=== PATIENT | male | born 1995 | race Caucasian/White ===

== ENCOUNTER 2021-10-01 08:13 | Emergency (ER) | payer BC, SELFPAY ==
--- NOTE | 2021-10-01 08:16 | ED.GENADULT ---
HPI - General Adult General Chief complaint: Upper Respiratory Infection Stated complaint: Fever Time Seen by Provider: 10/01/21 08:27 Source: patient and RN notes reviewed Mode of arrival: ambulatory Limitations: no limitations History of Present Illness HPI narrative: 26-year-old male presents to the [facility] with complaints of a fever. Patient states he woke up with a fever of 101 this morning, took some Advil. Also complains of generalized muscle aches and a headache. No blurry vision or change in vision. No upper respiratory symptoms. No cough. No nausea vomiting or diarrhea. Denies chest pain. MD complaint: fever Onset (ago): hour(s) (2-3) Related Data Home Medications Medication Instructions Recorded Confirmed No Home Medications 10/01/21 10/01/21 Allergies Allergy/AdvReac Type Severity Reaction Status Date / Time No Known Allergies Allergy Verified 10/01/21 08:46 Review of Systems Review of Systems: All systems reviewed & are unremarkable except as noted in HPI and below Constitutional: Constitutional: Reports as per HPI, Denies chills and Reports fever(s) Eyes: Eyes: Reports no additional eye complaints ENT: Reports system reviewed and no additional complaints, except as documented Cardiovascular: Cardiovascular: Reports no additional cardiovascular complaints Respiratory: Respiratory: Reports no additional respiratory complaints Gastrointestinal: Gastrointestinal: Reports no additional gastrointestinal complaints Musculoskeletal: Musculoskeletal: Reports no additional musculoskeletal complaints Integumentary/Breasts: Skin/Breast: Reports system reviewed and no additional complaints, except as docu Neurologic: Reports system reviewed and no additional complaints, except as documented Psychiatric: Psychiatric: Reports no additional psychiatric complaints Allergic/Immunologic: Allergic/Immunologic: Reports no additional allergic/immunologic complaints [facility] Past Medical History Medical History (Updated 10/01/21 @ 08:36 by Ruth Lao APRN) Patient denies medical problems Surgical History Surgical History (Updated 10/01/21 @ 08:35 by Ruth Lao APRN) H/O knee surgery Social History Social History (Updated 10/01/21 @ 08:35 by Ruth Lao APRN) Gender identity (if verbalized by the patient): Male Comments At the time of my signature, I reviewed and agree with the nursing past medical, surgical, social, and family history. There is no relevant family history pertinent to the patient complaint. Exam Const: General: healthy appearing, no acute distress and alert Nutritional Appearance: well nourished Orientation/consciousness: patient oriented x3 Limitations: no limitations HENMT: Head: normal to inspection Ears: external ears normal, TM's normal bilaterally and EAC's normal General nose exam: Normal external nose present Throat: posterior oropharynx normal and uvula midline Eyes: General: appearance normal, both eyes and all related structures Pupils: Equal, round and reactive pupils present Neck: Neck: normal visual inspection, no lymphadenopathy and no meningeal signs Chest: Chest palpation & inspection: normal inspection of the chest Resp: Effort & Inspection: normal respiratory effort and no use of accessory muscles Auscultation: clear to auscultation bilaterally, no crackles, no rales, no rhonchi and no wheezes Cardio: Rate: regular rate Rhythm: regular rhythm Back/Spine/Pelvis: Cervical Spine: normal cervical lordosis Thoracic/Lumbar Spine: thoracic and lumbar spine normal to inspection Skin: General skin exam: normal color Rashes: no rashes Wounds: no wounds Neuro: General: patient oriented x3, moves all extremities, no meningeal signs and no focal motor deficits Cranial nerves: Yes Equal, round and reactive pupils present Speech: normal speech Gait exam (Neuro): Normal gait present Extrem: General: normal to inspection, full ROM a
[2021-10-01 08:27] VITALS: BP 134/79; PULSE 74; RESP 20; TEMP 37.4; O2SAT 99
[2021-10-01 21:04] LABS: SARS-CoV-2 RNA PCR Positive
== END 2021-10-01 09:05 | disposition home or self-care (01) ==
PROVIDERS: Emergency Provider Nurse Practitioner
DX: U07.1 COVID-19 (principal)
CPT/HCPCS: 87804; 99203; C9803; G0463; U0003; U0005

== ENCOUNTER 2022-03-03 14:11 | Emergency (ER) | payer BC, SELFPAY ==
--- NOTE | 2022-03-03 14:12 | ED.SKABFB ---
HPI - Skin/Abscess/Foreign Bdy General Chief complaint: Skin/Abscess/Foreign Body Stated complaint: rash Time Seen by Provider: 03/03/22 14:36 Source: patient and RN notes reviewed Mode of arrival: ambulatory Limitations: no limitations History of Present Illness HPI narrative: 27-year-old male presents concern for rash. Reports he has been doing here hunting and he has been outdoors in the sandy. Reports he began having a rash on Friday several days after his exposure to the sandy. He reports he has been using Benadryl cream and calamine lotion with some temporary relief. Reports the rash has spread and is on his torso, arms, legs, groin, face. He denies involvement with the eyes or vision changes. Denies trouble breathing, swollen lips are swollen tongue MD complaint: rash Related Data Allergies Allergy/AdvReac Type Severity Reaction Status Date / Time No Known Allergies Allergy Verified 03/03/22 14:38 Review of Systems Review of Systems: CONSTITUTIONAL: Denies malaise, chills, sweats, or fever. EYES: Denies redness, or discharge. ENT: Denies rhinorrhea, congestion, swollen lips, swollen tongue CARDIOVASCULAR: Denies chest pain, palpitations, or edema. RESPIRATORY: Denies cough or dyspnea. GASTROINTESTINAL: Denies abdominal pain, nausea, vomiting SKIN: Reports itchy rash on his arms, legs, torso, groin, face MUSCULOSKELETAL: Denies joint pain or myalgia. NEUROLOGIC: Denies headache. All systems reviewed & are unremarkable except as noted in HPI and below PMFSH Past Medical History Medical History (Updated 03/03/22 @ 14:46 by Ruth Pedraza NP) Patient denies medical problems Surgical History Surgical History (Updated 10/01/21 @ 08:35 by Ruth Lao APRN) H/O knee surgery Social History Social History (Updated 10/01/21 @ 08:35 by Ruth Lao APRN) Gender identity (if verbalized by the patient): Male Comments At time of signature, agree with nursing past medical, surgical, social and family history. There is no relevant family history pertinent to the presenting complaint Exam Narrative: GENERAL: Well-appearing, well-nourished, and in no acute distress. HEAD: Normocephalic, atraumatic. Sclerae and conjunctivae clear EYES: PERRLA, conjunctivae clear, and EOMI. ENT: Mucous membranes moist. Oropharynx without edema, erythema or lesions. NECK: Supple. No lymphadenopathy CHEST: Clear to auscultation. No respiratory distress. HEART: Regular rate and rhythm. SKIN: Warm, dry. Patches of erythema, some scaly with some papules noted to bilateral arms, legs, face, torso, not involving eyes NEURO: Alert and oriented x3. PSYCH: Normal mood and affect Course Course Emergency Course: Patient is aware of diagnosis, understands and agrees to treatment plan. Anticipatory guidance given. Patient agrees to follow-up as directed and is aware of reasons to seek care at the emergency department. Portions of this record may have been created with voice recognition software Level of Care: Express Care Visit Vital Signs Vital signs: Reviewed. MDM - Skin/Abscess/Foreign Bdy MDM Narrative Medical decision making narrative: Does not appear at this time to be erythema multiforme, bullous, SJS, TEN; no evidence at this time to suggest RMSF, endocarditis or Lyme disease; patient looks well, nontoxic and is tolerating oral intake; no neurologic signs or symptoms; no headache, photophobia or neck pain; afebrile; appropriate for initial outpatient treatment; discussed the importance of follow-up, patient agrees; question, viral exanthema, contact dermatitis, allergic dermatitis, eczema, urticaria, scabies. No soft palate or uvula edema, no tongue, lip edema or other mucosal involvement, no respiratory compromise, no stridor, no wheezing, no wheezing, no history of syncope, no hypotension, no nausea, vomiting, or diarrhea. Instructed patient to go to nearest ER immediately for any worsening symptoms including but no
[2022-03-03 14:29] VITALS: BP 143/84; PULSE 82; RESP 16; TEMP 37; O2SAT 99
== END 2022-03-03 14:52 | disposition home or self-care (01) ==
PROVIDERS: Emergency Provider Nurse Practitioner
DX: L25.9 Unspecified contact dermatitis, unspecified cause (principal)
CPT/HCPCS: 99213; G0463

== ENCOUNTER → 2022-07-23 07:29 | Outpatient (CLI) | payer BC, SELFPAY ==
--- NOTE | ~2022-07-23 | MR_ITS ---
MRI of the right shoulder Technique: Axial proton-density fat-sat images, coronal proton density fat-sat and T2 fat-sat images, and sagittal T1-weighted and T2 fat-sat images were acquired. Clinical History: Pain Findings: There is minimal degenerative change at the AC joint. No subacromial spur. Coracoclavicular , coracoacromial, and coracohumeral ligaments are intact. Supraspinatus and infraspinatus tendons are intact, without partial or full-thickness tear. Subscapul hannah tendon is intact. Tendon of long head of the biceps is intact. No labral tear identified. Inferior glenohumeral ligament is intact. No degenerative change or effusion of the glenohumeral join t. No fluid distention of the subacromial/subdeltoid bursa. No muscle atrophy or edema. There is foca l cystic change or possibly small enchondroma near the greater tuberosity of the humerus. Impression: Minimal AC joint degenerative change. No rotator cuff or labral tear. Reviewed, dictated and finalized at [facility]. Impression: Minimal AC joint degenerative change. No rotator cuff or labral tear.
== END ==
PROVIDERS: PCP Nurse Practitioner Family; Visit Provider Nurse Practitioner Family
DX: M19.011 Primary osteoarthritis, right shoulder (principal)
CPT/HCPCS: 73221

== ENCOUNTER 2024-04-27 12:22 | Emergency (ER) | payer OTHER, SELFPAY ==
[2024-04-27 12:34] VITALS: BP 131/76; PULSE 72; RESP 16; TEMP 36.1; O2SAT 99
--- NOTE | 2024-04-27 12:43 | ED_ITS ---
HPI - Eye Problem General Chief complaint: Eye Problems Stated complaint: R eye irritation Time Seen by Provider: 04/27/24 12:45 Source: patient Mode of arrival: ambulatory Limitations: no limitations History of Present Illness HPI Narrative: Feliberto is a 29-year-old male patient presenting to the clinic today with complaints of right eye irritation/discomfort. He reports that he was moving over the weekend and thinks he may have gotten some wood dust in his right eye last night. Related Data Home Medications ?Medication ?Instructions ?Recorded ?Confirmed ?Last Taken ?Type No Home Medications 04/27/24 04/27/24 Unknown History Allergies Allergy/AdvReac Type Severity Reaction Status Date / Time No Known Allergies Allergy Verified 07/09/22 13:18 Review of Systems Review of Systems: Pertinent positives per HPI. Patient denies any fever, chills, rash, headache, visual changes, dizziness, cough, runny nose, sore throat, shortness of breath, chest pain, palpitations, nausea, vomiting, diarrhea, constipation, abdominal pa in, or any urinary issues. PMFSH Past Medical History Medical History Infraspinatus strain Right shoulder pain Surgical History Surgical History H/O knee surgery Rt knee scope-2014 Lt knee scope-2012 Family History Family History Unknown Hypertension Diabetes mellitus HLD (hyperlipidemia) Social History Social History Smoking status: Never smoker Alcohol intake: current Drinks per week: 2 Substance use: never Occupation/Education: occupation Additional occupation/education comments: [employer]. Gender identity (if verbalized by the patient): Male Comments At the time of my signature, I reviewed and agree with the nursing past medical, surgical, social, and family history. There is no relevant family history pertinent to the patient complaint. Exam Narrative: General: Well-developed, well nourished, in no apparent distress Head: Normocephalic, atraumatic Eyes: Pupils equally round and reactive to light bilaterally, EOM intact, left sclera and conjunctive clear, right sclera injected, right conjunctiva normal, no discharge, lids normal-Wood's lamp exam was performed and no sign corneal abrasion. Black foreign body noted at 12:00 p.m. under the right upper eyelid- remove successfully using a wet cotton tip applicator Ears: TMs intact and clear, ear canals clear, no drainage, grossly hearing normal. Nose: Nares patent, no discharge, no inflammation, no sinus tenderness. Mouth: Oropharynx without lesions or masses, good dentition, MMM. Neck: Supple, trachea midline, no enlargement of anterior or posterior cervical nodes, no thyroid masses or goiter palpable. Cardio: Regular rate and rhythm, s1 and s2 normal, no murmur appreciated. Resp: Clear to auscultation bilaterally anteriorly and posteriorly, no rhonchi, rales, wheezing or rubs Course Course Emergency Course: Portions of this record may have been created with voice recognition software. Level of Care: Express Care Visit Vital Signs Vital signs: Vital Signs Temperature 36.1 C L 04/27/24 12:34 Pulse Rate 72 04/27/24 12:34 Respiratory Rate 16 04/27/24 12:34 Blood Pressure 131/76 04/27/24 12:34 Pulse Oximetry 99 04/27/24 12:34 Oxygen Delivery Room Air 04/27/24 12:34 Temperature 36.1 C L 04/27/24 12:34 Pulse Rate 72 04/27/24 12:34 Respiratory Rate 16 04/27/24 12:34 Blood Pressure 131/76 04/27/24 12:34 Pulse Oximetry 99 04/27/24 12:34 Oxygen Delivery Room Air 04/27/24 12:34 Vital signs reviewed Procedures Other Procedure Procedure 1: Other Procedure: 2 drops of topical tetracaine anesthetic was instilled with good anesthesia. Fluorescein stain of the right eye was performed without uptake of dye. No epi thelial defect was noted. NO ulcer or dendritic lesions. Upper lid was everted and black FB was noted- removed using a wet sterile cotton tip applicator. No lesions were noted. NO Yadira sign. Normal saline irrigation eye solution was performed and the patient tolerated the procedure well, no adverse reaction or complications. MDM - Eye Problem MDM Narrative Medical decision making narrative: At the time of visit patient is resting comfortably on the exam table. Patient appears to be nontoxic. Procedures: Wood's lamp exam was performed without sign of corneal abrasion. No Yadira sign. Foreign body noted at 12:00 p.m. under the upper eyelid. Removed using a wet cotton tip applicator successfully. Patient tolerated well Plan: I suspect patient has foreign body in the right eye that was removed successfully in the clinic today. Still has some eye redness/irritation. Supportive measures were discussed with the patient and they voiced understanding discharge instructions and agrees to treatment plan. Return precautions reviewed Differential Diagnosis Differential diagnosis: Likely corneal abrasion, conjunctivitis, acute iritis, hyphema, periorbital cellulitis, subconjunctival hemorrhage, glaucoma, corneal ulcer, ruptured globe and other (Foreign body in the right eye) Discharge Plan Discharge Clinical Impression: Eye irritation Foreign body of right eye Qualifiers: Encounter type: initial encounter Qualified Code(s): T15.91XA - Foreign body on external eye, part unspecified, right eye, initial encounter Patient Disposition: Home, Self-Care Condition: Stable Instructions: Antibiotic Form, Eye Foreign Body (ED) Additional Instructions: Foreign body removed from the right eye May use artificial tears or Visine red eye as discussed No sign of corneal abrasion Follow-up with your primary care doctor as needed Patient Language: Hungarian Prescriptions: No Action No Home Medications Follow-up/Referrals: PHYSICIAN,CHEMICAL APPLICATOR [Primary Care Provider] - Time of Disposition: 12:57 Quality NIHSS Nursing Documentation ED NIHSS nursing documentation: reviewed/agree
[2024-04-27] MEDS: FLUORESCEIN SOD 1 MG/STRIP RIGHT EYE (12:46)
[2024-04-27] MEDS: DACRIOSE EYE IRRIGATION 118 ML BOTTLE RIGHT EYE (12:48)
[2024-04-27] MEDS: TETRACAINE HCL 0.5% OPHTH SOLN 4 ML BTL RIGHT EYE (12:49)
== END 2024-04-27 13:00 | disposition home or self-care (01) ==
PROVIDERS: Emergency Provider Nurse Practitioner Family
DX: T15.11XA Foreign body in conjunctival sac, right eye, initial encounter (principal); W44.9XXA Unspecified foreign body entering into or through a natural orifice, initial encounter
CPT/HCPCS: 65205; 99213; A9270; G0463